=== PATIENT | male | born 1955 | race Caucasian/White ===

== ENCOUNTER 2017-06-09 13:04 | Emergency (ER) | payer MEDICARE ==
--- NOTE | 2017-06-09 13:46 | XRAY Preliminary Report ---
Exam: XR CHEST 2 VIEW X-RAY IMPRESSION: Lingular infiltrate. [facility] SITE ID: [id number]
--- NOTE | 2017-06-09 13:51 | XRAY Report ---
EXAM: CHEST RADIOGRAPHY EXAM DATE: 06/09/2017 01:33 PM. CLINICAL HISTORY: Productive cough and shortness of breath for one day. COMPARISON: 02/21/2009. TECHNIQUE: 2 views. FINDINGS: Lungs/Pleura: Borderline overexpanded. New faint interstitial infiltrate in the lingula. Right lung is clear. No effusion, vascular congesti on nor pneumothorax. Mediastinum: Heart and mediastinal contours are unremarkable. Other: None. IMPRESSION: Lingular infiltrate. [facility] Referring Provider Line: [phone] SITE ID: [id number]
[2017-06-09] MEDS ORDERED: ALBUTEROL NEB 2.5 MG/3 ML INH STA (15:16)
[2017-06-09] MEDS ORDERED: DEXAMETHASONE 10 MG/ML VIAL PO STA (15:16)
--- NOTE | 2017-06-09 15:18 | ED Physician Documentation ---
History of Present Illness - Stated complaint Stated Complaint: BREATHING DIFFICULTY - Chief complaint Chief Complaint: Resp - Additonal information Additional information: hx from pt 61 male COPD sice age 15 better in recent past - doing well - MDIs friend was sick with cough and now he is too chills mylagias cough and SOA no travel no leg swelling no hx CHF qvar and albuterol did not help Review of Systems Constitutional: reports: Chills, Myalgias, Fatigue. denies: Fever Respiratory: reports: Dyspnea, Cough GI: denies: Abdominal Pain, Nausea, Vomiting, Diarrhea Musculoskeletal: denies: Extremity swelling Endocrine: denies: Easy bruising / bleeding Immunocompromised: denies: Immunocompromised PD PAST MEDICAL HISTORY - Past Medical History Past Medical History: Yes Respiratory: COPD - Past Surgical History Past Surgical History: No - Present Medications Home Medications: Ambulatory Orders Medication Instructions Recorded Confirmed Trazodone HCl 300 mg PO DAILY 07/26/13 07/26/13 Albuterol Sulf [Ventolin Hfa 1 - 2 puffs PO Q4HR 06/09/17 Inhaler] Albuterol Sulfate [Proair Hfa 2 puffs INH Q4H PRN #1 inhaler 06/09/17 Inhaler] Azithromycin [Zithromax] 250 mg PO DAILY #6 tablet 06/09/17 Beclomethasone 40 Mcg [Qvar 40] 1 puffs PO Q4HR PRN 06/09/17 Beclomethasone 40 Mcg [Qvar 40] 2 puffs INH BID #1 inhaler 06/09/17 predniSONE [Deltasone] 60 mg PO DAILY 5 Days tablet 06/09/17 - Allergies Allergies/Adverse Reactions: Allergies Allergy/AdvReac Type Severity Reaction Status Date / Time codeine AdvReac Nausea Verified 06/09/17 14:16 gluten AdvReac Hives Verified 06/09/17 15:27 lactose AdvReac Hives Verified 06/09/17 15:27 - Social History Does the pt smoke?: No Smoking Status: Never smoker Does the pt drink ETOH?: No Does the pt have substance abuse?: Yes Substance Use and Type: Marijuana - Immunizations Immunizations are current?: Yes PD ED PE NORMAL - Vitals Vital signs reviewed: Yes - Neck Neck: Supple, no meningeal sign - Cardiac Cardiac: RRR - Respiratory Respiratory: Other (cough, jere dec and wheeze with cough) - Abdomen Abdomen: Soft, Non tender - Derm Derm: Normal color - Extremities Extremities: No edema, No calf tenderness / cord - Neuro Neuro: Alert and oriented X 3, No motor deficit Results - Vitals Vitals: Vital Signs - 24 hr 06/09/17 06/09/17 13:19 15:32 Temperature 36.8 C 37.0 C Heart Rate 82 72 Respiratory 20 19 Rate Blood Pressure 153/84 H 121/70 O2 Saturation 98 98 Oxygen O2 Source Room air - Labs Labs: Laboratory Tests 06/09/17 15:30 Influenza A (Rapid) Negative Influenza B (Rapid) Negative - Rads (name of study) CXR Radiology: See rad report (lingular infiltrate) Departure - Departure Disposition: 01 Home, Self Care Clinical Impression: Pneumonia Qualifiers: Pneumonia type: due to unspecified organism Laterality: left Lung location: unspecified part of lung Qualified Code(s): J18.9 - Pneumonia, unspecified organism Condition: Good Instructions: ED COPD Flare, ED Pneumonia Adult Prescriptions: Albuterol Sulfate [Proair Hfa Inhaler] 2 puffs INH Q4H PRN #1 inhaler PRN Reason: Shortness Of Air/Wheezing Azithromycin [Zithromax] 250 mg PO DAILY #6 tablet Beclomethasone 40 Mcg [Qvar 40] 2 puffs INH BID #1 inhaler predniSONE [Deltasone] 60 mg PO DAILY 5 Days tablet Comments: The xray shows a left lung pneumonia The flu swabs were negative
[2017-06-09] MEDS ORDERED: CHERRY SYRUP 10 ML UDC PO ONE (15:31)
[2017-06-09 15:33] VITALS: BP 121/70
== END 2017-06-09 16:45 | disposition home or self-care (01) ==
LOC: ED 13:04
DX: J11.89 Influenza due to unidentified influenza virus with other manifestations (principal)
CPT/HCPCS: 71046; 87275; 87276; 94640; 94664; 99283; 99284; A9270

== ENCOUNTER 2017-06-13 19:39 | Emergency (ER) | payer MEDICARE ==
--- NOTE | 2017-06-13 20:39 | ED Physician Documentation ---
PD HPI URI - Stated complaint Stated Complaint: POSS PNEUMONIA - Chief complaint Chief Complaint: Resp - History obtained from History obtained from: Patient - History of Present Illness Timing - onset: How many weeks ago (2) Timing duration: Weeks (2) Timing details: Gradual onset, Still present Associated symptoms: Chills, Productive cough, Dyspnea. No: Fever, Sore throat , Hemoptysis, Chest pain, NVD Contributing factors: COPD / asthma. No: Sick contact, Travel, Immunocompromised Recently seen: Emergency Dept (given Zpack and prednisone without improvement.) Review of Systems Constitutional: denies: Fever, Chills Nose: denies: Rhinorrhea / runny nose, Congestion Throat: denies: Sore throat Cardiac: denies: Chest pain / pressure, Palpitations Respiratory: reports: Dyspnea, Cough, Wheezing. denies: Hemoptysis GI: denies: Abdominal Pain, Nausea, Vomiting, Diarrhea Skin: denies: Rash, Lesions PD PAST MEDICAL HISTORY - Past Medical History Respiratory: Asthma, COPD, Emphysema, Pneumonia, Shortness of breath GI: GERD, Hiatal hernia, Hemorrhoids Psych: ADD/ADHD Derm: Psoriasis - Past Surgical History Past Surgical History: No - Present Medications Home Medications: Ambulatory Orders Medication Instructions Recorded Confirmed Trazodone HCl 300 mg PO DAILY 07/26/13 07/26/13 Albuterol 2.5 mg INH Q4H PRN #30 neb 06/09/17 Albuterol Sulf [Ventolin Hfa 1 - 2 puffs PO Q4HR 06/09/17 Inhaler] Albuterol Sulfate [Proair Hfa 2 puffs INH Q4H PRN #1 inhaler 06/09/17 Inhaler] Azithromycin [Zithromax] 250 mg PO DAILY #6 tablet 06/09/17 Beclomethasone 40 Mcg [Qvar 40] 1 puffs PO Q4HR PRN 06/09/17 Beclomethasone 40 Mcg [Qvar 40] 2 puffs INH BID #1 inhaler 06/09/17 predniSONE [Deltasone] 60 mg PO DAILY 5 Days tablet 06/09/17 Albuterol 2.5 mg INH Q4H PRN #30 neb 06/13/17 Benzonatate [Tessalon] 100 mg PO TID PRN #25 capsule 06/13/17 Dexamethasone [Decadron] 4 mg PO DAILY #5 tablet 06/13/17 Doxycycline Monohydrate 100 mg PO BID #14 tablet 06/13/17 - Allergies Allergies/Adverse Reactions: Allergies Allergy/AdvReac Type Severity Reaction Status Date / Time codeine AdvReac Nausea Verified 06/13/17 19:55 gluten AdvReac Hives Verified 06/13/17 19:55 lactose AdvReac Hives Verified 06/13/17 19:55 - Social History Does the pt smoke?: No Smoking Status: Never smoker Does the pt drink ETOH?: No Substance Use and Type: Marijuana PD ED PE NORMAL - Vitals Vital signs reviewed: Yes - General General: Alert and oriented X 3, No acute distress, Well developed/nourished - HEENT HEENT: Ears normal, Moist mucous membranes, Pharynx benign - Neck Neck: Supple, no meningeal sign, No adenopathy - Cardiac Cardiac: RRR, No murmur - Respiratory Respiratory: No: Clear bilaterally (faint wheezes, no coarse sounds) - Abdomen Abdomen: Soft, Non tender - Back Back: No CVA TTP - Derm Derm: Normal color, Warm and dry - Extremities Extremities: No tenderness to palpate, No edema, No calf tenderness / cord - Neuro Neuro: Alert and oriented X 3, No motor deficit, Normal speech Results - Vitals Vitals: Oxygen O2 Source Room air - Labs Labs: Laboratory Tests 06/13/17 06/13/17 20:39 20:39 WBC 9.9 RBC 4.44 L Hgb 13.9 L Hct 41.7 L MCV 94.0 MCH 31.3 H MCHC 33.3 RDW 14.5 Plt Count 209 MPV 8.6 Neut # 8.1 H Lymph # 1.1 L [place] # 0.6 Eos # 0.0 Baso # 0.1 Absolute Nucleated RBC 0.00 Nucleated RBC % 0.0 Sodium 135 Potassium 3.7 Chloride 104 Carbon Dioxide 23 Anion Gap 8.0 BUN 17 Creatinine 0.9 Estimated GFR (MDRD) 86 L Glucose 122 H Calcium 9.1 - Rads (name of study) chest Radiology: Prelim report reviewed (normal xray), EMP read contemporaneously ( same as recent, with faint lingular infiltrate. ) PD MEDICAL DECISION MAKING - ED course Complexity details: reviewed results (similar xray to prior with faint lingular infiltrate. ), considered differential, d/w patient Departure - Departure Disposition: Home, Self Care Clinical Impression: Pneumonia Qualifiers: Pneumonia type: due to unspecified organism Laterality: left Lung location: lower lobe of lung Qualified Code(s): J18.1 - Lobar pneumonia, unspecified organism Condition: Stable Record reviewed to determine appropriate education?: Yes Instructions: ED Pneumonia Adult Prescriptions: Albuterol 2.5 mg INH Q4H PRN #30 neb PRN Reason: Wheezing Benzonatate [Tessalon] 100 mg PO TID PRN #25 capsule PRN Reason: Cough Dexamethasone [Decadron] 4 mg PO DAILY #5 tablet Doxycycline Monohydrate 100 mg PO BID #14 tablet Comments: Use the albuterol inhaler or nebulizer 4 times a day for the next week. Use extra times if needed. Will try a different steroid and antibiotic to see if they work better for the pneumonia. Drink lots of fluids. Tessalon if needed for cough. Recheck if not improving over the next several days to a week. Discharge Date/Time: 06/13/17 21:57
[2017-06-13 20:52] LABS: CALCIUM 9.1 mg/dL (8.5-10.3); CREATININE 0.9 mg/dL (0.6-1.2)
[2017-06-13 20:55] LABS: BASOPHILS # (AUTO) 0.1 10^3/uL (0.0-0.1); BASOPHILS % (AUTO) 0.5 %; HGB - HEMOGLOBIN 13.9 g/dL (14.0-18.0); LYMPHOCYTES # (AUTO) 1.1 10^3/uL (1.5-3.5); LYMPHOCYTES % (AUTO) 11.2 %; MEAN CORPUSCULAR HEMOGLOBIN 31.3 pg (27.0-31.0); MEAN CORPUSCULAR HGB CONC 33.3 g/dL (32.0-36.0); MEAN PLATELET VOLUME 8.6 fL (7.4-11.4); MONOCYTES # (AUTO) 0.6 10^3/uL (0.0-1.0); MONOCYTES % (AUTO) 6.2 %; NEUTROPHILS # (AUTO) 8.1 10^3/uL (1.5-6.6); NEUTROPHILS % (AUTO) 82.1 %; PLT - PLATELET COUNT 209 10^3/uL (130-450); RED BLOOD COUNT 4.44 10^6/uL (4.70-6.10); RED CELL DISTRIBUTION WIDTH 14.5 % (12.0-15.0); WHITE BLOOD COUNT 9.9 x10^3/uL (4.8-10.8)
--- NOTE | 2017-06-13 21:11 | XRAY Report ---
EXAM: CHEST RADIOGRAPHY EXAM DATE: 06/13/2017 08:56 PM. CLINICAL HISTORY: Cough, fever, pneumonia. COMPARISON: None. TECHNIQUE: 2 views. FINDINGS: Lungs/Pleura: Mildly hyperexpanded, but clear. No effusion or pneumothorax. Mediastinum: Heart and mediastinal contours are unremarkable. Other: None. IMPRESSION: No acute disease. [facility] Referring Provider Line: [phone] SITE ID: [id number]
[2017-06-13] MEDS ORDERED: IPRATROPIUM/ALBUTEROL 3 ML NEB INH STA (21:27)
[2017-06-13] MEDS ORDERED: DEXAMETHASONE 10 MG/ML VIAL PO STA (21:27)
[2017-06-13] MEDS ORDERED: BENZONATATE 100 MG CAPSULE PO STA (21:27)
[2017-06-13] MEDS ORDERED: DOXYCYCLINE 100 MG TABLET PO STA (21:27)
[2017-06-13 21:37] VITALS: BP 170/76
[2017-06-13] MEDS ORDERED: ALBUTEROL NEB 2.5 MG/3 ML INH STA (22:00)
== END 2017-06-13 21:57 | disposition home or self-care (01) ==
LOC: ED 19:39
DX: J18.1 Lobar pneumonia, unspecified organism (principal); J44.9 Chronic obstructive pulmonary disease, unspecified; J45.909 Unspecified asthma, uncomplicated
CPT/HCPCS: 36415; 71046; 80048; 85025; 94640; 99283; 99284; A9270

== ENCOUNTER 2018-06-21 13:42 | Emergency (ER) | payer MEDICARE ==
[2018-06-21] MEDS ORDERED: KETOROLAC 30 MG/ML VIAL IVP STA (14:08)
[2018-06-21] MEDS ORDERED: SODIUM CHLORIDE 0.9% 1,000 ML IV ONE (14:08)
--- NOTE | 2018-06-21 14:09 | ED Physician Documentation ---
PD HPI ABD PAIN - Stated complaint Stated Complaint: LOWER ABD PX L - Chief complaint Chief Complaint: Abd Pain - History obtained from History obtained from: Patient - History of Present Illness Timing - onset: Other (62-year-old gentleman with history of ADD, gluten intolerance and insomnia presents with constipation for 5 days but now severe left lower quadrant pain radiating to the right lower quadrant starting this morning. He did have a small bowel movement a couple of days ago with the aid of laxatives. He took an enema today which was unhelpful. He has a history of narcotic abuse and wants to try to avoid narcotic pain medication.) Review of Systems Ten Systems: 10 systems reviewed and negative Constitutional: denies: Fever, Chills Nose: denies: Rhinorrhea / runny nose, Congestion Throat: denies: Sore throat Cardiac: denies: Chest pain / pressure, Palpitations Respiratory: denies: Dyspnea PD PAST MEDICAL HISTORY - Past Medical History Past Medical History: Yes Respiratory: Asthma - Past Surgical History Past Surgical History: No - Present Medications Home Medications: Ambulatory Orders Medication Instructions Recorded Confirmed RX: Trazodone HCl 300 mg PO DAILY 07/26/13 07/26/13 Azithromycin [Zithromax] 250 mg PO DAILY #6 tablet 06/09/17 Beclomethasone 40 Mcg [Qvar 40] 1 puffs PO Q4HR PRN 06/09/17 Beclomethasone 40 Mcg [Qvar 40] 2 puffs INH BID #1 inhaler 06/09/17 RX: Albuterol 2.5 mg INH Q4H PRN #30 neb 06/09/17 RX: Albuterol Sulf [Ventolin Hfa 1 - 2 puffs PO Q4HR 06/09/17 Inhaler] RX: Albuterol Sulfate [Proair Hfa 2 puffs INH Q4H PRN #1 inhaler 06/09/17 Inhaler] RX: predniSONE [Deltasone] 60 mg PO DAILY 5 Days tablet 06/09/17 Benzonatate [Tessalon] 100 mg PO TID PRN #25 capsule 06/13/17 Dexamethasone [Decadron] 4 mg PO DAILY #5 tablet 06/13/17 RX: Albuterol 2.5 mg INH Q4H PRN #30 neb 06/13/17 RX: Doxycycline Monohydrate 100 mg PO BID #14 tablet 06/13/17 - Allergies Allergies/Adverse Reactions: Allergies Allergy/AdvReac Type Severity Reaction Status Date / Time codeine AdvReac Nausea Verified 06/21/18 13:53 gluten AdvReac Hives Verified 06/21/18 13:53 lactose AdvReac Hives Verified 06/21/18 13:53 - Living Situation Living Arrangement: reports: At home - Social History Does the pt smoke?: No Does the pt drink ETOH?: No Does the pt have substance abuse?: No - Family History Family history: reports: Non contributory PD ED PE NORMAL - Vitals Vital signs reviewed: Yes - General General: Alert and oriented X 3, No acute distress - HEENT HEENT: PERRL, EOMI - Neck Neck: Supple, no meningeal sign, No bony TTP - Cardiac Cardiac: RRR, No murmur - Respiratory Respiratory: No respiratory distress, Clear bilaterally - Abdomen Abdomen: Soft, Other (He has normal bowel tones, he is diffusely tender especially in the low abdomen, left greater than right.) - Back Back: No CVA TTP, No spinal TTP - Derm Derm: Normal color, Warm and dry - Extremities Extremities: No edema, No calf tenderness / cord - Neuro Neuro: Alert and oriented X 3, Normal speech Results - Vitals Vitals: Vital Signs - 24 hr 06/21/18 06/21/18 06/21/18 13:51 14:29 15:41 Temperature 37.1 C 37.5 C Heart Rate 101 H 83 95 Respiratory 18 20 12 Rate Blood Pressure 162/132 H 149/71 H 154/90 H O2 Saturation 99 97 98 06/21/18 16:47 Temperature Heart Rate 84 Respiratory 14 Rate Blood Pressure 148/87 H O2 Saturation 96 Oxygen O2 Source Room air - Labs Labs: Laboratory Tests 06/21/18 06/21/18 14:19 14:19 WBC 13.6 H RBC 4.48 L Hgb 14.1 Hct 42.1 MCV 94.1 H MCH 31.6 H MCHC 33.6 RDW 14.3 Plt Count 174 MPV 9.1 Neut # (Auto) 12.3 H Lymph # (Auto) 0.6 L [place] # (Auto) 0.6 Eos # (Auto) 0.0 Baso # (Auto) 0.1 Absolute Nucleated RBC 0.00 Nucleated RBC % 0.0 Sodium 135 Potassium 3.6 Chloride 104 Carbon Dioxide 20 L Anion Gap 11.0 BUN 16 Creatinine 1.1 Estimated GFR (MDRD) 68 L Glucose 125 H Calcium 8.9 Total Bilirubin 1.2 H AST 15 ALT 15 Alkaline Phosphatase 67 Total Protein 7.4 Albumin 4.1 Globulin 3.3 Albumin/Globulin Ratio 1.2 Lipase 25 - Rads (name of study) CT A/P Radiology: EMP read contemporaneously (Diverticulitis with perforation causing free air) PD MEDICAL DECISION MAKING - ED course ED course: I reviewed the images of the CT at around 3:20 PM, it shows clear free air. I called the surgeon, Dr. Ludwig to come in and see him, we agreed on Zosyn in the interim. I went to talk to the patient and discussed the diagnosis. He does not want to have surgery here, he wants to be transferred to [place]. I discussed with him that since he needs an urgent surgery and this is within the range of the scope of capabilities of this hospital he may be responsible for any bills associated with transport plus a delay to surgery may be dangerous to him and increase his risk of from peritonitis. He understands and wants me to call [facility] and they were called at 3:27 PM. We eventually actually went through [facility], and after some delays he was accepted to [place] by the surgeon there for his perforated diverticulitis. [place]ras were completed. He is stable for transport. Departure - Departure Disposition: 02 Transfer Acute Care Hosp Clinical Impression: Perforated abdominal viscus, Peritonitis, Diverticulitis of gastrointestinal tract Condition: Serious Discharge Date/Time: 06/21/18 17:58
[2018-06-21 14:51] LABS: ALBUMIN 4.1 g/dL (3.2-5.5); ALBUMIN/GLOBULIN RATIO 1.2 (1.0-2.2); BILIRUBIN,TOTAL 1.2 mg/dL (0.2-1.0); CALCIUM 8.9 mg/dL (8.5-10.3); CREATININE 1.1 mg/dL (0.6-1.2); TOTAL PROTEIN 7.4 g/dL (6.7-8.2)
[2018-06-21 14:54] LABS: BASOPHILS # (AUTO) 0.1 10^3/uL (0.0-0.1); BASOPHILS % (AUTO) 0.4 %; EOSINOPHILS % (AUTO) 0.1 %; HGB - HEMOGLOBIN 14.1 g/dL (14.0-18.0); LYMPHOCYTES # (AUTO) 0.6 10^3/uL (1.5-3.5); LYMPHOCYTES % (AUTO) 4.4 %; MEAN CORPUSCULAR HEMOGLOBIN 31.6 pg (27.0-31.0); MEAN CORPUSCULAR HGB CONC 33.6 g/dL (32.0-36.0); MEAN CORPUSCULAR VOLUME 94.1 fL (80.0-94.0); MEAN PLATELET VOLUME 9.1 fL (7.4-11.4); MONOCYTES # (AUTO) 0.6 10^3/uL (0.0-1.0); MONOCYTES % (AUTO) 4.4 %; NEUTROPHILS # (AUTO) 12.3 10^3/uL (1.5-6.6); NEUTROPHILS % (AUTO) 90.7 %; PLT - PLATELET COUNT 174 10^3/uL (130-450); RED BLOOD COUNT 4.48 10^6/uL (4.70-6.10); RED CELL DISTRIBUTION WIDTH 14.3 % (12.0-15.0); WHITE BLOOD COUNT 13.6 x10^3/uL (4.8-10.8)
[2018-06-21] MEDS ORDERED: IOVERSOL 320 100 ML VIAL IVP ONE ×2 (15:03→15:24)
[2018-06-21] MEDS ORDERED: PIPERACILLIN/TAZOBACTAM 3.375 GM in SODIUM CHLORIDE 0.9% MINIBAG 100 ML IV STA (15:21)
--- NOTE | 2018-06-21 15:40 | CT Report ---
Reason: IV only, LLQ pain Procedure Date: 06/21/2018 Accession Number: [id number] / [id number] Procedure: CT - Abdomen/Pelvis W CPT Code: FULL RESULT: EXAM: CT ABDOMEN AND PELVIS EXAM DATE: 06/21/2018 03:23 PM. CLINICAL HISTORY: IV only, LLQ pain. COMPARISONS: None. TECHNIQUE: Routine helical CT imaging was performed through the abdomen and pelvis. IV contrast: OPTI 320 90 ML. Enteric contrast: No. Reconstructions: Coronal and sagittal. In accordance with CT protocol optimization, one or more of the following dose reduction techniques were utilized for this exam: automated exposure control, adjustment of mA and/or KV based on patient size, or use of iterative reconstructive technique. FINDINGS: Lung Bases: There is mild basilar emphysema. Liver: Normal. No masses. Gallbladder/Bile Ducts: Unremarkable. Spleen: Normal. Pancreas: Normal. Adrenal Glands: Normal. Kidneys: Normal. No masses or hydronephrosis. Peritoneal Cavity/Bowel: There is an overall small volume of pneumoperitoneum within the abdomen. There are multiple small bubbles of extraintestinal gas within the right and left upper quadrant. There is focal fat stranding in the left lower quadrant. There is thickening of the wall of the sigmoid colon. There are a moderate number of diverticula within the sigmoid colon. There is a small volume of dependent free fluid within the pelvis without an enhancing wall. The small bowel appears mildly dilated in the left abdomen near the mesenteric inflammatory process, probably representing ileus. The appendix is well visualized and normal. Pelvic Organs: Normal. The bladder and visualized pelvic organs are within normal limits. Vasculature: There is mild atherosclerotic vascular calcification. Bones: No significant abnormality. Other: None. IMPRESSION: 1. Left lower quadrant inflammatory process involving sigmoid colon and adjacent mesentery with moderate diverticula and pneumoperitoneum. Consistent with acute diverticulitis complicated by bowel perforation. 2. No organized abscess. Small free fluid in the low pelvis. 3. Probable reactive ileus of small bowel loops in the left abdomen [facility] The critical result notification system was initiated by Dr. Sanket Campos at 03:37 PM on 06/21/2018. ADDENDUM: 06/21/18 15:39 The above critical result findings were discussed with Rizwan Lopes by Dr. Sanket Campos at 03:39 PM on 06/21/2018.
[2018-06-21 16:48] VITALS: BP 148/87
== END 2018-06-21 17:58 | disposition short-term general hospital (02) ==
LOC: ED 13:42
DX: K63.1 Perforation of intestine (nontraumatic) (principal); K65.9 Peritonitis, unspecified; K57.92 Diverticulitis of intestine, part unspecified, without perforation or abscess without bleeding
CPT/HCPCS: 36415; 74177; 80053; 83690; 85025; 96361; 96365; 96375; 99284; Q9967; 81001; 81003; 87086

== ENCOUNTER 2018-06-21 16:59 | Outpatient (CLI) | payer MEDICARE | END 2018-06-21 17:00 | disposition short-term general hospital (02) | LOC: EMS 16:59 | PROVIDERS: ATTEND Surgery | DX: K57.80 Diverticulitis of intestine, part unspecified, with perforation and abscess without bleeding (principal) | CPT/HCPCS: A0425; A0426 ==

== ENCOUNTER 2018-07-22 08:22 | Outpatient (CLI) | payer MEDICARE ==
[2018-07-22 08:47] LABS: BASOPHILS # (AUTO) 0.1 10^3/uL (0.0-0.1); BASOPHILS % (AUTO) 1.4 %; EOSINOPHILS # (AUTO) 0.2 10^3/uL (0.0-0.7); EOSINOPHILS % (AUTO) 2.2 %; HGB - HEMOGLOBIN 11.4 g/dL (14.0-18.0); LYMPHOCYTES # (AUTO) 2.6 10^3/uL (1.5-3.5); LYMPHOCYTES % (AUTO) 29.3 %; MEAN CORPUSCULAR HEMOGLOBIN 31.3 pg (27.0-31.0); MEAN CORPUSCULAR HGB CONC 33.4 g/dL (32.0-36.0); MEAN CORPUSCULAR VOLUME 93.8 fL (80.0-94.0); MEAN PLATELET VOLUME 7.5 fL (7.4-11.4); MONOCYTES # (AUTO) 0.7 10^3/uL (0.0-1.0); MONOCYTES % (AUTO) 7.7 %; NEUTROPHILS # (AUTO) 5.4 10^3/uL (1.5-6.6); NEUTROPHILS % (AUTO) 59.4 %; PLT - PLATELET COUNT 295 10^3/uL (130-450); RED BLOOD COUNT 3.63 10^6/uL (4.70-6.10); RED CELL DISTRIBUTION WIDTH 15.7 % (12.0-15.0)
== END 2018-07-22 08:23 | disposition home or self-care (01) ==
LOC: LAB 08:22
PROVIDERS: ATTEND Internal Medicine
DX: Z87.19 Personal history of other diseases of the digestive system (principal); K57.92 Diverticulitis of intestine, part unspecified, without perforation or abscess without bleeding
CPT/HCPCS: 36415; 85025

== ENCOUNTER 2020-04-06 11:14 | Emergency (ER) | payer MEDICARE ==
--- NOTE | 2020-04-06 11:53 | ED Physician Documentation ---
History of Present Illness - Stated complaint Stated Complaint: ELEVATED BP SENT BY - Chief complaint Chief Complaint: General - History obtained from History obtained from: Patient - Additonal information Additional information: 64-year-old male presents the emergency department for elevation of his blood pressure as well as a syncopal episode and headache. This gentleman reports that last night in the evening he got up from his chair and walked to the refrigerator where he suddenly fainted. He dropped to the ground and is unsure how long he lost consciousness. He was able to get up on his own however. However over the last few days he has been taking his blood pressure at home and noticed that its been in the 160 to the 180 range. He denies any previous history of hypertension but does state that his doctors have been concerned about elevated blood pressures over the last few months but have not initiated treatment. In addition to this patient reports that he has had a posterior headache off and on for about 3 weeks with some associated dizziness especially when he looks upwards. He called his primary care office this morning and was advised to present to the emergency department for evaluation of his blood pressure. 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 The ostomy was ultimately reversed a few months ago at [facility] in [place]. He states that he had a CAT scan completed 5 days ago through the [place] clinic and was told that the anastomosis appeared normal and that the CAT scan showed no concerning findings. He does report that he has been passing stool and gas. They are not bloody or black. He did have constipation a few weeks ago that resolved with MiraLAX or magnesium citrate Endpoint at this time he denies chest pain, shortness of breath, abdominal pain, dysuria urgency or frequency. He does endorse intermittent vomiting and nausea over the last few weeks. Social: Former drinker quit 25 years ago. Former smoker quit 10 years ago meds: Trazodone nightly Review of Systems Constitutional: denies: Fever, Chills, Myalgias Eyes: denies: Loss of vision Ears: reports: Loss of hearing Nose: reports: Reviewed and negative Throat: reports: Reviewed and negative Cardiac: denies: Chest pain / pressure, Palpitations, Pedal edema, Calf pain Respiratory: denies: Dyspnea, Cough, Hemoptysis, Wheezing GI: reports: Nausea, Vomiting, Constipation. denies: Abdominal Pain, Diarrhea, Hematemesis, Bloody / black stool : denies: Dysuria, Frequency, Hesitancy Musculoskeletal: reports: Reviewed and negative Neurologic: reports: Syncope, Headache, LOC. denies: Generalized weakness, Focal weakness, Numbness, Difficulty speaking, Seizure, Confused, Altered mental status, Head injury Psychiatric: reports: Reviewed and negative Endocrine: reports: Reviewed and negative PD PAST MEDICAL HISTORY - Past Medical History Cardiovascular: None Respiratory: Asthma Endocrine/Autoimmune: None GI: GERD, Hiatal hernia, Hemorrhoids Psych: ADD/ADHD Musculoskeletal: Fatigue, Chronic back pain Derm: Psoriasis - Past Surgical History Past Surgical History: No - Present Medications Home Medications: Ambulatory Orders Medication Instructions Recorded Confirmed Trazodone HCl 300 mg PO DAILY 07/26/13 04/06/20 - Allergies Allergies/Adverse Reactions: Allergies Allergy/AdvReac Type Severity Reaction Status Date / Time codeine AdvReac Nausea Verified 04/06/20 11:24 gluten AdvReac Hives Verified 04/06/20 11:24 lactose AdvReac Hives Verified 04/06/20 11:24 - Social History Does the pt smoke?: No Smoking Status: Never smoker Does the pt drink ETOH?: No Does the pt have substance abuse?: No - Immunizations Immunizations are current?: Yes - POLST Patient has POLST: No PD ED PE EXPANDED - General General: Alert, No acute distress, Well developed/nourished - HEENT HEENT: Atraumatic, PERRL, EOMI, Ears normal (Moderate amount of cerumen in each ear canal however visible tympanic membrane is without worrisome findings.) - Neck Neck: Supple w/out meningeal sx. No: Adenopathy - Cardiac Cardiac: Regular Rate, Regular Rhythm, Radial strong equal, Pedal strong equal, Cap refill < 2 sec. No: Murmur Present - Respiratory Respiratory: Clear to ausultation jere. No: Distress, Labored - Abdomen Abdomen: Normal Bowel sounds, Surgical scars (Multiple well-healed surgical scars on the abdomen midline periumbilical and left lower quadrant. All healed without surrounding erythema, induration milky drainage. Abdominal exam is benign without any tenderness elicited.). No: Tender to palpation - Derm Derm: Normal color, Warm and dry. No: Rash, Petecchiae, Purpura - Extremities Extremities: Normal. No: Deformity, Tenderness, Pedal edema bilateral, Right calf TTP/cord, Left calf TTP/cord - Neuro Neuro: Alert and Oriented X 3, CNII-XII intact, Normal finger nose, Normal speech. No: Nystagmus, Aphasia - GCS Eye Opening: Spontaneous Motor: Obeys Commands Verbal: Oriented Total: 15 Results - Vitals Vitals: Vital Signs - 24 hr 04/06/20 04/06/20 04/06/20 11:17 12:34 13:04 Temperature 36.3 C L Heart Rate 98 80 74 Respiratory 18 16 19 Rate Blood Pressure 160/84 H 143/75 H 142/80 H O2 Saturation 96 100 100 04/06/20 13:30 Temperature Heart Rate 72 Respiratory 17 Rate Blood Pressure 145/70 H O2 Saturation 98 Oxygen O2 Source Room air - EKG (time done) 1135 Rate: Rate (enter#) (93) Rhythm: NSR [place]: Normal Intervals: Normal [place]. No: Prolonged QT QRS: Low voltage (borderline, extremity leads) Ischemia: Normal ST segments Compare to prior EKG: Old EKG unavailable Computer interpretation: Agree with computer - Labs Labs: Laboratory Tests 04/06/20 04/06/20 04/06/20 12:01 12:01 12:01 WBC 8.4 RBC 4.42 L Hgb 13.7 L Hct 40.7 L MCV 92.1 MCH 31.0 MCHC 33.7 RDW 14.6 Plt Count 171 MPV 9.9 Neut # (Auto) 6.4 Lymph # (Auto) 1.3 L [place] # (Auto) 0.6 Eos # (Auto) 0.1 Baso # (Auto) 0.1 Absolute Nucleated RBC 0.00 Nucleated RBC % 0.0 Sodium 132 L Potassium 3.3 L Chloride 100 L Carbon Dioxide 25 Anion Gap 7.0 BUN 18 Creatinine 1.0 Estimated GFR (MDRD) 75 L Glucose 126 H Calcium 9.2 Total Bilirubin 0.7 AST 15 ALT 16 Alkaline Phosphatase 68 Troponin I High Sens 9.9 Total Protein 7.2 Albumin 4.6 Globulin 2.6 Albumin/Globulin Ratio 1.8 Lipase 29 - Rads (name of study) CXR Radiology: Final report received (Stable examination of the chest without acute cardiopulmonary abnormalities) CT head Radiology: Final report received (Moderate vasogenic edema with associated sulcal effacement involving the bilateral temporal lobes, posterior parietal lobes and occipital lobes with similar left greater than right edematous change in the cerebellum. There is a possible 2 x 2 centimeter mass versus more focal edema lef temp fossa), See rad report, Other (Suspected small amount of subarachnoid hemorrhage of the bilateral temporal lobes, cerebellum and within the fourth ventricle. No hydrocephalus.) PD MEDICAL DECISION MAKING - ED course Complexity details: reviewed results, re-evaluated patient, considered differential, d/w patient ED course: 64-year-old male presents the emergency department for evaluation of concerns of elevated blood pressures over the last few months, headache for about 2 to 3 weeks as well as vertigo. He presents here with a moderate blood pressure elevation with a systolic of 160. On exam he has no focal neuro deficits or abnormal cerebellar signs though I could not evaluate his gait. 1230: CT of the head is completed and it does show moderate vasogenic edema with edematous changes of the cerebellum. There may also be a 2x2 centimeter mass involving the posterior portion of the temporal fossa. There is also concerned that he may have subarachnoid hemorrhage within the bilateral temporal lobes, cerebellum and within the fourth ventricle. 1255: Respiratory PCR panel sent in anticipation of emergent transfer. I have put spoken with Dr. Martinez neurosurgeon at [facility]. He agrees that the patient should be transferred. He would like the patient to be admitted to the medicine floor with neurosurgery as a consult. At the time of this phone call he would not recommend the patient receive mannitol or steroids unless his neuro status changes. 1330: I Have spoken on the phone with Dr. Franklny Sheth medicine provider at [facility]. She does not feel that the patient is appropriate for direct admission to the floor as she feels the concerns are primarily neurosurgical. [facility] is now rediscussing this case with neurosurgery. However the patient may be transferred ER to ER in order to facilitate further care. Pt remains alert, GCS 15 and medically stable. BP currently 142/80. 1340: I have spoken with Dr Neal attending emergency department physician at [facility]. She has accepted the patient on direct transfer to the emergency department for further evaluation and diagnostic imaging. Patient will be sent via ground transport ALS. [facility] is not available at this time. Appropriate COBRA paperwork completed. Departure - Departure Disposition: 02 Transfer Acute Care Hosp Clinical Impression: Vasogenic cerebral edema Syncope Qualifiers: Syncope type: unspecified Qualified Code(s): R55 - Syncope and collapse Condition: Stable Record reviewed to determine appropriate education?: Yes
[2020-04-06] MEDS ORDERED: SODIUM CHLORIDE 0.9% 1,000 ML IV STA (11:54)
[2020-04-06] MEDS ORDERED: ONDANSETRON 4 MG/2 ML VIAL IVP STA (11:54)
--- NOTE | 2020-04-06 12:01 | XRAY Report ---
PROCEDURE: Chest 1 View X-Ray INDICATIONS: Chest Pain/ PT STATES HIGH BLOOD PRESSURE TECHNIQUE: One view of the chest was acquired. COMPARISON: 06/13/2017 FINDINGS: Surgical changes and devices: None. Lungs and pleura: No pleural effusions or pneumothorax. Lungs are clear. Mild hyperaeration, stabl e. Mediastinum: Mediastinal contours appear normal. Heart size is normal. Bones and chest wall: No suspicious bony lesions. Overlying soft tissues appear unremarkable. IMPRESSION: Stable examination of the chest without acute cardiopulmonary abnormalities. No focal airspace diseas e. Reviewed by: Martinez Damon MD on 04/06/2020 11:59 AM PST Approved by: Martinez Damon MD on 04/06/2020 11:59 AM PST Station ID: [id number]
[2020-04-06 12:09] LABS: BASOPHILS # (AUTO) 0.1 10^3/uL (0.0-0.1); BASOPHILS % (AUTO) 0.6 %; EOSINOPHILS # (AUTO) 0.1 10^3/uL (0.0-0.7); EOSINOPHILS % (AUTO) 1.2 %; HGB - HEMOGLOBIN 13.7 g/dL (14.0-18.0); LYMPHOCYTES # (AUTO) 1.3 10^3/uL (1.5-3.5); MEAN CORPUSCULAR HGB CONC 33.7 g/dL (32.0-36.0); MEAN CORPUSCULAR VOLUME 92.1 fL (80.0-94.0); MEAN PLATELET VOLUME 9.9 fL (7.4-11.4); MONOCYTES # (AUTO) 0.6 10^3/uL (0.0-1.0); MONOCYTES % (AUTO) 7.1 %; NEUTROPHILS # (AUTO) 6.4 10^3/uL (1.5-6.6); NEUTROPHILS % (AUTO) 75.9 %; PLT - PLATELET COUNT 171 10^3/uL (130-450); RED BLOOD COUNT 4.42 10^6/uL (4.70-6.10); RED CELL DISTRIBUTION WIDTH 14.6 % (12.0-15.0); WHITE BLOOD COUNT 8.4 x10^3/uL (4.8-10.8)
[2020-04-06 12:26] LABS: ALBUMIN 4.6 g/dL (3.2-5.5); ALBUMIN/GLOBULIN RATIO 1.8 (1.0-2.2); BILIRUBIN,TOTAL 0.7 mg/dL (0.2-1.0); CALCIUM 9.2 mg/dL (8.5-10.3); TOTAL PROTEIN 7.2 g/dL (6.7-8.2)
--- NOTE | 2020-04-06 12:38 | CT Report ---
PROCEDURE: HEAD WO INDICATIONS: syncope and headache. Hypertensive emergency. TECHNIQUE: Noncontrast 4.5 mm thick angled axial sections acquired from the foramen magnum to the vertex. For r adiation dose reduction, the following was used: automated exposure control, adjustment of mA and/or kV according to patient size. COMPARISON: None. FINDINGS: Image quality: Excellent. CSF spaces: Basal cisterns are patent. No extra-axial fluid collections. Ventricles are normal in size and shape. Brain: There is moderate vasogenic edema with effacement of the overlying sulci involving the bilate ral temporal lobes, posterior parietal lobes, and occipital lobes with similar findings involving the cerebellum, more pronounced on the left. There is faint hyperdensities within the sulci suggestive o f possible subarachnoid hemorrhage. Additionally, possible intraventricular hemorrhage involving the fourth ventricle. No definite mass lesion although there is a possible 2.2 x 1.9 cm oval hypodense le sania with peripheral hyperintensity in deep inferior, posterior margin of the left temporal lobe. No midline shift. There is ill-defined campa-white matter differentiation in the involved areas of the br ain. Overall, findings appear relatively symmetric. The frontal lobes appear within normal limits. Skull and face: Calvarium and visualized facial bones are intact, without suspicious lesions. Sinuses: Visualized sinuses and mastoids are clear. IMPRESSION: 1. Moderate vasogenic edema with associated sulcal effacement involving the bilateral temporal lobes, posterior parietal lobes, and occipital lobes with similar left greater than right edematous changes of the cerebellum. There is a possible 2.2 x 1.9 cm mass versus more focal edema involving the infer ior, posterior margin of the left temporal fossa. Findings may represent sequela of hypertensive ence phalopathy, acute cerebral infarction, or possible hypoglycemia. 2. Suspected small amount of subarachnoid hemorrhage of the bilateral temporal lobes, cerebellum, and within the fourth ventricle. 3. No hydrocephalus. Recommend further evaluation with MRI evaluation of the brain without and with intravenous contrast. Findings were discussed with NASRA No at 1230 hrs. Reviewed by: Martinez Damon MD on 04/06/2020 12:37 PM PST Approved by: Martinez Damon MD on 04/06/2020 12:37 PM PST Station ID: [id number]
[2020-04-06 14:58] LABS: C. PNEUMONIAE- RESP PCR PANEL NOT DETECTED
[2020-04-06 15:24] VITALS: BP 149/80
== END 2020-04-06 15:01 | disposition short-term general hospital (02) ==
LOC: ED 11:14
DX: G93.6 Cerebral edema (principal); I60.9 Nontraumatic subarachnoid hemorrhage, unspecified; R55 Syncope and collapse; Z20.822 Contact with and (suspected) exposure to COVID-19; Z87.891 Personal history of nicotine dependence
CPT/HCPCS: 0202U; 36415; 80053; 83690; 84484; 85025; 93005; 96361; 96374; 99285

== ENCOUNTER 2020-04-06 15:06 | Outpatient (CLI) | payer MEDICARE | END 2020-04-06 15:07 | disposition short-term general hospital (02) | LOC: EMS 15:06 | DX: G93.6 Cerebral edema (principal); I60.9 Nontraumatic subarachnoid hemorrhage, unspecified; R55 Syncope and collapse | CPT/HCPCS: A0425; A0428 ==

== ENCOUNTER 2020-08-03 15:09 | Outpatient (CLI) | payer MEDICARE ==
[2020-08-03 15:25] LABS: BASOPHILS # (AUTO) 0.1 10^3/uL (0.0-0.1); BASOPHILS % (AUTO) 1.7 %; EOSINOPHILS # (AUTO) 0.1 10^3/uL (0.0-0.7); EOSINOPHILS % (AUTO) 1.5 %; HCT - HEMATOCRIT 34.8 % (42.0-52.0); HGB - HEMOGLOBIN 11.6 g/dL (14.0-18.0); LYMPHOCYTES # (AUTO) 0.6 10^3/uL (1.5-3.5); LYMPHOCYTES % (AUTO) 18.3 %; MEAN CORPUSCULAR HGB CONC 33.3 g/dL (32.0-36.0); MEAN CORPUSCULAR VOLUME 102.1 fL (80.0-94.0); MEAN PLATELET VOLUME 10.1 fL (7.4-11.4); MONOCYTES # (AUTO) 0.6 10^3/uL (0.0-1.0); MONOCYTES % (AUTO) 16.9 %; NEUTROPHILS # (AUTO) 2.1 10^3/uL (1.5-6.6); NEUTROPHILS % (AUTO) 61.3 %; PLT - PLATELET COUNT 186 10^3/uL (130-450); RED BLOOD COUNT 3.41 10^6/uL (4.70-6.10); RED CELL DISTRIBUTION WIDTH 16.7 % (12.0-15.0); WHITE BLOOD COUNT 3.4 x10^3/uL (4.8-10.8)
[2020-08-03 15:37] LABS: ALBUMIN 4.5 g/dL (3.2-5.5); ALBUMIN/GLOBULIN RATIO 1.7 (1.0-2.2); BILIRUBIN,TOTAL 0.7 mg/dL (0.2-1.0); CALCIUM 9.8 mg/dL (8.5-10.3); CREATININE 1.1 mg/dL (0.6-1.2); POTASSIUM 4.4 mmol/L (3.5-5.0); TOTAL PROTEIN 7.1 g/dL (6.7-8.2)
== END 2020-08-03 15:10 | disposition home or self-care (01) ==
LOC: LAB 15:09
PROVIDERS: ATTEND Internal Medicine
DX: C34.91 Malignant neoplasm of unspecified part of right bronchus or lung (principal)
CPT/HCPCS: 36415; 80053; 85025

== ENCOUNTER 2020-08-24 08:00 | Outpatient (CLI) | payer MEDICARE ==
[2020-08-24 13:58] LABS: BASOPHILS # (AUTO) 0.1 10^3/uL (0.0-0.1); EOSINOPHILS # (AUTO) 0.3 10^3/uL (0.0-0.7); EOSINOPHILS % (AUTO) 4.9 %; HCT - HEMATOCRIT 36.6 % (42.0-52.0); HGB - HEMOGLOBIN 12.3 g/dL (14.0-18.0); LYMPHOCYTES # (AUTO) 0.7 10^3/uL (1.5-3.5); LYMPHOCYTES % (AUTO) 12.2 %; MEAN CORPUSCULAR HEMOGLOBIN 33.5 pg (27.0-31.0); MEAN CORPUSCULAR HGB CONC 33.6 g/dL (32.0-36.0); MEAN CORPUSCULAR VOLUME 99.7 fL (80.0-94.0); MEAN PLATELET VOLUME 10.4 fL (7.4-11.4); MONOCYTES # (AUTO) 0.4 10^3/uL (0.0-1.0); MONOCYTES % (AUTO) 7.4 %; NEUTROPHILS # (AUTO) 4.4 10^3/uL (1.5-6.6); NEUTROPHILS % (AUTO) 74.3 %; PLT - PLATELET COUNT 106 10^3/uL (130-450); RED BLOOD COUNT 3.67 10^6/uL (4.70-6.10); WHITE BLOOD COUNT 5.9 x10^3/uL (4.8-10.8)
[2020-08-24 14:33] LABS: ALBUMIN 4.3 g/dL (3.2-5.5); ALBUMIN/GLOBULIN RATIO 1.6 (1.0-2.2); CALCIUM 9.5 mg/dL (8.5-10.3)
== END 2020-08-24 23:59 | disposition home or self-care (01) ==
LOC: LAB 08:00
PROVIDERS: ATTEND Internal Medicine
DX: C34.91 Malignant neoplasm of unspecified part of right bronchus or lung (principal)
CPT/HCPCS: 36415; 80053; 85025

== ENCOUNTER 2021-01-25 12:35 | Outpatient (CLI) | payer MEDICARE ==
[2021-01-25] MEDS ORDERED: IOVERSOL 320 50 ML VIAL ONE (12:52)
[2021-01-25] MEDS ORDERED: IOVERSOL 320 100 ML VIAL IVP ONE ×2 (12:52→20:21)
--- NOTE | 2021-01-25 16:40 | CT Report ---
PROCEDURE: Abdomen/Pelvis W INDICATIONS: LUNG CANCER CONTRAST: IV CONTRAST: Optiray 320 ml: 100 PO CONTRAST: Optiray 320 ml50 TECHNIQUE: After the administration of oral and intravenous contrast, 5 mm thick sections acquired from the diap hragms to the symphysis. 5 mm thick coronal and sagittal reformats were acquired. For radiation dos e reduction, the following was used: automated exposure control, adjustment of mA and/or kV accordin g to patient size. COMPARISON: CT chest/abdomen/pelvis 09/01/2020. FINDINGS: Image quality: Excellent. ABDOMEN: Lung bases: No acute abnormality. Please see the report from the dedicated CT of the chest performed at same time for detailed intrathoracic findings. Solid organs: Liver and spleen are normal in size and enhancement. Gallbladder is unremarkable. Bi liary system is non dilated. Pancreas enhances normally. No adrenal nodules. Kidneys demonstrate n ormal size and enhancement, without hydronephrosis. Peritoneum and bowel: Surgical anastomosis is seen at the rectosigmoid junction. Additional small tiffanie wel anastomosis is seen in the anterior abdomen. No signs of bowel obstruction. Normal appendix. Mildred l loops demonstrate normal wall thickness and caliber. No free fluid or air. Nodes and vessels: No retroperitoneal or mesenteric adenopathy by size criteria. Aorta and inferior vena cava are normal in size. Miscellaneous: Surgical scarring is seen in the midline abdomen. A small ventral hernia is seen in th e supraumbilical region containing fat and a loop of small bowel without signs of bowel obstruction. PELVIS: Genitourinary: Bladder wall thickness is normal. Miscellaneous: No inguinal hernias or adenopathy. Bones: No suspicious bony lesions. No vertebral body compression fractures. IMPRESSION: 1.No signs of metastatic disease in the abdomen or pelvis. No bulky lymphadenopathy. 2.Small supraumbilical ventral hernia containing a loop of small bowel without signs of bowel obstruc tion. Reviewed by: David Reynolds MD on 01/25/2021 4:39 PM PST Approved by: David Reynolds MD on 01/25/2021 4:39 PM PST Station ID: [id number]
--- NOTE | 2021-01-25 17:13 | CT Report ---
PROCEDURE: CHEST W INDICATIONS: LUNG CANCER CONTRAST: IV CONTRAST: Optiray 320 ml: 100 PO CONTRAST: Optiray 320 ml50 TECHNIQUE: After the administration of intravenous contrast, 1 mm axial images were acquired from the pulmonary apices through the posterior costophrenic angles. Axial 5 mm soft tissue kernel reconstructions were performed as well as 8 mm axial MIP and coronal and sagittal 5 mm reformations. For radiation dose reduction, the following was used: automated exposure control, adjustment of mA and/or kV according to patient size. COMPARISON: Same day CT abdomen pelvis. CT chest, abdomen and pelvis 09/01/2020. FINDINGS: Image quality: Excellent. Lungs and pleura: Nodular and curvilinear opacity at the right apex measuring 1.1 x 0.7 cm, ( an d 07/24), previously 1.3 x 1.[address] 09/01/2020. Several small pulmonary cysts. Paraseptal emphysema. No acute air space opacities. No pleural effusions or pneumothorax. Central and peripheral airways are patent and normal in caliber. Mediastinum: Heart size is normal. Coronary artery calcifications. No pericardial effusion. No medi astinal or hilar adenopathy by size criteria. Thoracic aorta and central pulmonary arteries are norm al in size. Esophagus is normal in caliber. No hiatal hernia. Bones and chest wall: No suspicious bony lesions. No vertebral body compression fractures. No axil aliza or supraclavicular adenopathy by size criteria. The thyroid is normal in size and there are no incidental findings. Abdomen: Visualized upper abdominal solid organs appear normal. Upper abdominal bowel loops are nor mal in caliber. IMPRESSION: 1. Nodular opacity at the right apex measuring mean diameter 0.9 cm is slightly decreased. 2. Paraseptal emphysema. 3. No adenopathy. Reviewed by: Antonio Weinstein MD on 01/25/2021 5:11 PM PST Approved by: Antonio Weinstein MD on 01/25/2021 5:11 PM PST Station ID: [id number]
[2021-01-25] MEDS ORDERED: IOVERSOL 320 50 ML VIAL PO ONE (20:22)
== END 2021-01-25 12:36 | disposition home or self-care (01) ==
LOC: MAC.INF 12:35
PROVIDERS: ATTEND Internal Medicine
DX: C34.91 Malignant neoplasm of unspecified part of right bronchus or lung (principal)
CPT/HCPCS: 71260; 74177; Q9967

== ENCOUNTER 2021-05-06 21:02 | Outpatient (CLI) | payer MEDICARE | END 2021-05-06 21:03 | disposition short-term general hospital (02) | LOC: EMS 21:02 | DX: M25.552 Pain in left hip (principal); W17.89XA Other fall from one level to another, initial encounter; Y92.008 Other place in unspecified non-institutional (private) residence as the place of occurrence of the external cause | CPT/HCPCS: A0425; A0429 ==

== ENCOUNTER 2021-07-25 14:45 | Outpatient (CLI) | payer MEDICARE ==
[2021-07-25 14:57] LABS: BILIRUBIN,URINE NEGATIVE (NEGATIVE); GLUCOSE, URINE (UA) NEGATIVE (NEGATIVE); KETONES,URINE (UA) NEGATIVE (NEGATIVE); LEUKOCYTE ESTERASE, URINE NEGATIVE (NEGATIVE); NITRITE,URINE NEGATIVE (NEGATIVE); OCCULT BLOOD,URINE NEGATIVE (NEGATIVE); PROTEIN,URINE NEGATIVE (NEGATIVE); UROBILINOGEN,URINE 0.2 (NORMAL) E.U./dL (NORMAL)
[2021-07-25 15:02] LABS: CLARITY,URINE CLEAR (CLEAR)
[2021-07-25 15:25] LABS: BACTERIA,URINE None Seen /HPF (None Seen); RBC,URINE 0-5 /HPF (0-5); SQUAMOUS EPITHELIAL CELL,UR NONE SEEN (<= Few); WBC,URINE 0-3 /HPF (0-3)
== END 2021-07-25 14:46 | disposition home or self-care (01) ==
LOC: LAB 14:45
PROVIDERS: ATTEND Specialist
DX: C79.31 Secondary malignant neoplasm of brain (principal)
CPT/HCPCS: 81001; 87086

== ENCOUNTER 2021-08-29 15:06 | Emergency (ER) | payer MEDICARE ==
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
[2021-08-29 15:59] LABS: BASOPHILS # (AUTO) 0.1 10^3/uL (0.0-0.1); BASOPHILS % (AUTO) 0.8 %; EOSINOPHILS # (AUTO) 0.1 10^3/uL (0.0-0.7); EOSINOPHILS % (AUTO) 1.1 %; HCT - HEMATOCRIT 38.1 % (42.0-52.0); HGB - HEMOGLOBIN 12.9 g/dL (14.0-18.0); LYMPHOCYTES # (AUTO) 1.1 10^3/uL (1.5-3.5); LYMPHOCYTES % (AUTO) 17.6 %; MEAN CORPUSCULAR HEMOGLOBIN 31.5 pg (27.0-31.0); MEAN CORPUSCULAR HGB CONC 33.9 g/dL (32.0-36.0); MEAN CORPUSCULAR VOLUME 93.2 fL (80.0-94.0); MEAN PLATELET VOLUME 10.2 fL (7.4-11.4); MONOCYTES # (AUTO) 0.4 10^3/uL (0.0-1.0); MONOCYTES % (AUTO) 6.7 %; NEUTROPHILS # (AUTO) 4.6 10^3/uL (1.5-6.6); NEUTROPHILS % (AUTO) 73.5 %; PLT - PLATELET COUNT 168 10^3/uL (130-450); RED BLOOD COUNT 4.09 10^6/uL (4.70-6.10); RED CELL DISTRIBUTION WIDTH 13.8 % (12.0-15.0); WHITE BLOOD COUNT 6.3 x10^3/uL (4.8-10.8)
[2021-08-29 16:09] LABS: INR 1.2 (0.8-1.2); PT - PROTHROMBIN TIME 12.9 secs (9.9-12.6)
[2021-08-29 16:13] LABS: ALBUMIN 4.4 g/dL (3.2-5.5); ALBUMIN/GLOBULIN RATIO 1.6 (1.0-2.2); ALKALINE PHOSPHATASE 52 IU/L (42-121); ALT ALANINE AMINOTRANSFERASE 14 IU/L (10-60); AST ASPARTATE AMINOTRANSFERASE 16 IU/L (10-42); BILIRUBIN,TOTAL 0.8 mg/dL (0.2-1.0); BUN - BLOOD UREA NITROGEN 16 mg/dL (6-20); CALCIUM 9.6 mg/dL (8.5-10.3); CARBON DIOXIDE - CO2 26 mmol/L (21-32); CHLORIDE 102 mmol/L (101-111); CREATININE 0.9 mg/dL (0.6-1.2); ETOH - ETHANOL < 5.0 mg/dL; GFR - MDRD 84 (>89); GLUCOSE 129 mg/dL (70-100); MAGNESIUM 2.2 mg/dL (1.7-2.8); POTASSIUM 3.6 mmol/L (3.5-5.0); SODIUM 136 mmol/L (135-145); TOTAL PROTEIN 7.1 g/dL (6.7-8.2)
--- NOTE | 2021-08-29 17:01 | CT Report ---
PROCEDURE: HEAD WO INDICATIONS: ams TECHNIQUE: Noncontrast 4.5 mm thick angled axial sections acquired from the foramen magnum to the vertex. For r adiation dose reduction, the following was used: automated exposure control, adjustment of mA and/or kV according to patient size. COMPARISON: 04/06/2020. FINDINGS: Image quality: Excellent. CSF spaces: Basal cisterns are patent. No extra-axial fluid collections. Ventricles are normal in size and shape. Brain: Extensive vasogenic edema in bilateral temporal parietal lobe white matter is seen with efface ment of bilateral temporal parietal sulci and poor campa-white differentiation worse on the left side. Overall extent of edema has increased compared to previous study. Mass effect and mild effacement of left lateral ventricle is noted. No evidence of acute intraparenchymal hemorrhage. There is approxim ately 3 mm midline shift to the right. Skull and face: Calvarium and visualized facial bones are intact, without suspicious lesions. Sinuses: Visualized sinuses and mastoids are clear. IMPRESSION: 1. Interval progression of extensive vasogenic edema involving bilateral temporal parietal lobe with effacement of adjacent sulci and mass effect on left lateral ventricle. There is up to 3 mm midline s hift to the right. No evidence of intraparenchymal hemorrhage or extra-axial fluid collection. The co nstellation of finding is highly suggestive of intracranial metastatic disease given patient's histor y of adenocarcinoma of lung. MRI of brain without and with contrast can be done for more detailed mayco luation of bilateral brain parenchyma. Reviewed by: Rafael Olson MD on 08/29/2021 5:00 PM PDT Approved by: Rafael Olson MD on 08/29/2021 5:00 PM PDT Station ID: [id number]
[2021-08-29] MEDS ORDERED: DEXAMETHASONE 10 MG/ML VIAL IVP STA (17:12)
[2021-08-29 17:35] LABS: MUDS CUTOFF CONCENTRATIONS CUTOFF CONC BELOW:
[2021-08-29 17:50] LABS: AMPHETAMINE SCREEN,URINE NEGATIVE (NEGATIVE); BARBITURATE SCREEN,UR NEGATIVE (NEGATIVE); BENZODIAZEPINES SCREEN, URINE NEGATIVE (NEGATIVE); COCAINE SCREEN URINE NEGATIVE (NEGATIVE); METHADONE SCREEN, URINE NEGATIVE (NEGATIVE); METHAMPHETAMINES SCREEN, URINE NEGATIVE (NEGATIVE); OPIATE SCREEN, URINE NEGATIVE (NEGATIVE); OXYCODONE SCREEN, URINE NEGATIVE (NEGATIVE); PROPOXYPHENE SCREEN, URINE NEGATIVE (NEGATIVE); THC CANNABINOID SCREEN, URINE POSITIVE (NEGATIVE); TRICYCLIC ANTIDEPRESSANT,URINE NEGATIVE (NEGATIVE)
[2021-08-29] MEDS ORDERED: LORazepam 2 MG/ML VIAL IVP STA (18:04)
[2021-08-30] MEDS ORDERED: GADOBUTROL 7.5 MMOL/7.5 ML VIAL ONE (07:54)
[2021-08-30] MEDS ORDERED: LORazepam 2 MG/ML VIAL IVP STA ×2 (07:56→21:31)
[2021-08-30] MEDS ORDERED: LORazepam 2 MG/ML VIAL ONE (08:09)
[2021-08-30] MEDS: dexAMETHasone 4 MG TABLET PO SCH ×2 (09:03→17:36)
[2021-08-30] MEDS ORDERED: GADOBUTROL 7.5 MMOL/7.5 ML VIAL IVP ONE (09:16)
--- NOTE | 2021-08-30 12:33 | MRI Report ---
PROCEDURE: Brain W/WO INDICATIONS: vasogenic edema d/t CA CONTRAST: IV CONTRAST: Gadavist ml: 6.8 TECHNIQUE: Noncontrast axial T1 spin echo, axial T2 fast spin echo, sagittal and axial FLAIR, coronal T2 fast sp in echo, axial gradient echo, axial diffusion and ADC through the brain. After the administration of contrast, axial and coronal T1 spin echo with fat saturation through the brain. COMPARISON: CT head 08/29/2021, 04/06/2020 FINDINGS: Image quality: Excellent. CSF spaces: Basal cisterns are patent. No extra-axial fluid collections. Ventricles are normal in size and shape. Brain: There is cerebral volume loss for age. There is periventricular white matter chronic small v essel ischemic change. The brainstem appears normal. Diffusion-weighted images demonstrate no acute ischemic insults. No chronic ischemic insults. Normal intravascular flow voids are present. Within the left temporal lobe there is a 2.7 x 2.2 x 3.2 cm enhancing mass. There is surrounding prom inent hyperintense FLAIR signal. There is a left right midline shift measuring approximately 6 mm. In addition, there is prominent although to a lesser degree appearance of hyperintense FLAIR signal wit hin the right temporal parietal lobe. No clearly visualized. Abnormal enhancement is present. Skull and face: Calvarial marrow is normal in signal. Orbits appear normal. Sinuses: Sinuses and mastoids appear clear. IMPRESSION: Enhancing focus within the left temporal lobe with vasogenic edema as well as midline shift most conc erning for malignancy. No prior MRIs are available for comparison. Increased FLAIR signal within the right temporal parietal lobe although to a lesser degree compared t o the left. Although no definitive enhancing mass is identified, interval follow-up is recommended or recommend correlation to prior history such as radiation treatment. No prior MRIs are available for comparison. Reviewed by: Milla Avina MD on 08/30/2021 12:32 PM PDT Approved by: Milla Avina MD on 08/30/2021 12:32 PM PDT Station ID: [id number]
--- NOTE | 2021-08-30 12:51 | ED Physician Documentation ---
ED Addendum - Addendum Addendum: 08/30/21 12:47 Examined pt at bedside. Seems about the same today as far as level confusion. MRI done showing: Enhancing focus within the left temporal lobe with vasogenic edema as well as midline shift most concerning for malignancy. No prior MRIs are available for comparison. Increased FLAIR signal within the right temporal parietal lobe although to a lesser degree compared to the left. Although no definitive enhancing mass is identified, interval follow-up is recommended or recommend correlation to prior history such as radiation treatment. No prior MRIs are available for comparison. Spoke with Sister/POA by phone and update given. Per MANA[employer] no bed available at [facility] now and "unlikely" for today.
[2021-08-30] MEDS ORDERED: traZODone 50 MG TABLET PO STA (21:32)
[2021-08-31] MEDS: dexAMETHasone 4 MG TABLET PO SCH ×2 (10:44→17:08)
--- NOTE | 2021-08-31 14:17 | ED Physician Documentation ---
ED Addendum - Addendum Addendum: 08/31/21 14:17 He seems the same or slightly more encephalopathic today but still sitting up eating and talking albeit somewhat nonsensically. The health unit controller tells me there might be a bed available in [place] today but it is certainly not guaranteed.
[2021-08-31] MEDS: traZODone 50 MG TABLET PO SCH (21:05)
[2021-09-01] MEDS: dexAMETHasone 4 MG TABLET PO SCH ×2 (08:35→17:03)
--- NOTE | 2021-09-01 09:03 | ED Physician Documentation ---
ED Addendum - Addendum Addendum: 09/01/21 09:03 No changes overnight, the patient continues to be confused. Still awaiting transfer. No appropriate beds available anywhere in the region currently. 09/01/21 09:03
[2021-09-01] MEDS: traZODone 50 MG TABLET PO SCH (21:00)
[2021-09-02] MEDS: dexAMETHasone 4 MG TABLET PO SCH (08:21)
[2021-09-02] MEDS ORDERED: TAMSULOSIN 0.4 MG CAPSULE PO SCH (09:00)
[2021-09-02] MEDS ORDERED: PANTOPRAZOLE 40 MG TABLET PO SCH (09:00)
[2021-09-02] MEDS ORDERED: LORazepam 1 MG TABLET PO STA (11:51)
[2021-09-02 13:07] VITALS: BP 148/81
--- NOTE | 2021-09-02 13:51 | ED Physician Documentation ---
ED Addendum - Addendum Addendum: 09/02/21 13:51 Seen at bedside today, initially without the sister and he seems slightly less encephalopathic than he did when I last saw him which was on Friday. Discussed ongoing wait for transfer with the sister and she is his POA. She is frustrated by the waitt and plans to sign him out AGAINST MEDICAL ADVICE which I have discouraged. He was given a copy of his MRI on CD to aid in his outpatient follow-up.
[2021-09-02] MEDS ORDERED: hydrOXYzine PAMOATE 25 MG CAPSULE PO SCH (21:00)
[2021-09-02] MEDS ORDERED: GABAPENTIN 100 MG CAPSULE PO SCH (21:00)
== END 2021-09-02 14:38 | disposition left against medical advice (07) ==
LOC: ED 15:06
DX: D49.6 Neoplasm of unspecified behavior of brain (principal); R41.0 Disorientation, unspecified; Z20.822 Contact with and (suspected) exposure to COVID-19
CPT/HCPCS: 36415; 70450; 70553; 80053; 80306; 82140; 83735; 85025; 85610; 87635; 93005; 96374; 96375; 96376; 99284; 99285; A9270; A9585; G0480; J2060; J8499; J8540; 80320